=== PATIENT | male | born 1940 | race Caucasian/White ===

== ENCOUNTER 2019-05-13 22:10 | Emergency (ER) | payer MEDICARE, OTHER ==
--- NOTE | 2019-05-13 23:30 | EDM.PDOC ---
ED HPI GENERAL MEDICAL PROBLEM - General Chief Complaint: Abdominal Pain Stated Complaint: RIGHT SIDED ABDOMINAL PAIN Time Seen by Provider: 05/13/19 23:19 Source of Information: Reports: Patient, Family, RN Notes Reviewed History Limitations: Reports: No Limitations - History of Present Illness INITIAL COMMENTS - FREE TEXT/NARRATIVE: 78-year-old gentleman presents emergency department today complaint of right upper quadrant pain, he states the pain happened about 2 hours prior was very intense rates it 7 out of 10 now pain is mostly resolved. States having normal bowel movements no nausea no vomiting no shortness of breath chest pain fevers. Does have a past surgical history appendectomy several years ago, feels he is back to his normal self Right Lower Abdomen Pain Score (Numeric/FACES): 7 - Related Data Allergies Allergy/AdvReac Type Severity Reaction Status Date / Time IVP dye Allergy Rash Uncoded 05/13/19 22:55 Home Meds: Home Meds Coconut Oil 1,000 mg PO DAILY 05/13/19 [History] Fish Oil/[place]-3 Fatty Acids [Fish Oil 1,000 MG] 1 tab PO DAILY 05/13/19 [ History] Lisinopril 1 tab PO DAILY 05/13/19 [History] Multivitamin [Multivitamins] 1 each PO DAILY 05/13/19 [History] Pramipexole Di-HCl [Mirapex] 0.5 mg PO DAILY 05/13/19 [History] SitaGLIPtin [Januvia] 1 tab PO DAILY 05/13/19 [History] Ubidecarenone [Co Q-10] 100 mg PO DAILY 05/13/19 [History] Vitamins A and D [Vitamin A and D] 1 each PO DAILY 05/13/19 [History] atorvaSTATin [Lipitor] 20 mg PO DAILY 05/13/19 [History] Past Medical History HEENT History: Reports: Hard of Hearing, Impaired Vision, Other (See Below) Other HEENT History: hearing aids Cardiovascular History: Reports: Heart Murmur, High Cholesterol, Hypertension, Other (See Below) Other Cardiovascular History: AAA Is being monitored. Gastrointestinal History: Reports: Diverticulosis Genitourinary History: Reports: Renal Calculus, Other (See Below) Other Genitourinary History: Bladder CA Musculoskeletal History: Reports: Fracture Other Musculoskeletal History: neck fx. Hx of restless leg syndrome Endocrine/Metabolic History: Reports: Diabetes, Type II, Obesity/BMI 30+ Oncologic (Cancer) History: Reports: Bladder, Other (See Below) Other Oncologic History: Basil cell CA Dermatologic History: Reports: Other (See Below) Other Dermatologic History: Basil cell CA - Infectious Disease History Infectious Disease History: Reports: Chicken Pox, Measles, Mumps - Past Surgical History HEENT Surgical History: Reports: Tonsillectomy GI Surgical History: Reports: Appendectomy, Colonoscopy, Hernia, Inguinal Musculoskeletal Surgical History: Reports: Other (See Below) Other Musculoskeletal Surgeries/Procedures:: r knee tendon repair Dermatological Surgical History: Reports: Skin Biopsy Social & Family History - Tobacco Use Smoking Status *Q: Never Smoker Second Hand Smoke Exposure: No - Caffeine Use Caffeine Use: Reports: Soda - Recreational Drug Use Recreational Drug Use: No ED ROS GENERAL - Review of Systems Review Of Systems: See Below Respiratory: Reports: No Symptoms Cardiovascular: Reports: No Symptoms GI/Abdominal: Reports: Abdominal Pain, Flatus. Denies: Constipation, Diarrhea, Nausea, Vomiting : Reports: No Symptoms ED EXAM, GI/ABD - Physical Exam Exam: See Below Exam Limited By: No Limitations General Appearance: Alert, WD/WN, No Apparent Distress Respiratory/Chest: No Respiratory Distress, Lungs Clear, Normal Breath Sounds, No Accessory Muscle Use, Chest Non-Tender Cardiovascular: Regular Rate, Rhythm, Systolic Murmur GI/Abdominal Exam: Normal Bowel Sounds, Soft, Non-Tender, No Organomegaly, No Distention, No Abnormal Bruit Course - Vital Signs Last Recorded V/S: Last Vital Signs Temp 96.8 F 05/13/19 23:13 Pulse 92 05/13/19 23:13 Resp 22 H 05/13/19 23:13 BP 173/93 H 05/13/19 23:13 Pulse Ox 95 05/13/19 23:13 Departure - Departure Time of Disposition: 23:29 Disposition: Home, Self-Care 01 Condition: Fair Clinical Impression: Right upper quadrant abdominal pain - Discharge Information Instructions: Abdominal Pain, Adult, [id number] Referrals: PCP,None [Primary Care Provider] - Additional Instructions: Please followup with your primary care provider in 3-5 days if not better, please call return to the emergency department with worsening of symptoms. - Assessment/Plan Plan: Assessment Acuity = acute Site and laterality = right upper quadrant pain now resolved Etiology = [unclear etiology Manifestations = none Location of injury = Home Lab values = none Plan Because he feels back to his normal self elected to do watchful waiting at this time follow-up primary care 3-5 days if no improvement, I did not for him blood work and further evaluation This note was dictated using [employer] voice recognition software please call with any questions on syntax or grammar.
== END 2019-05-13 23:37 | disposition home or self-care (01) ==
LOC: JP.ED 22:10
DX: R10.11 Right upper quadrant pain (principal); I10 Essential (primary) hypertension; E78.00 Pure hypercholesterolemia, unspecified; Z79.899 Other long term (current) drug therapy; Z91.041 Radiographic dye allergy status
CPT/HCPCS: 99283